=== PATIENT | female | born 1980 | race Caucasian/White ===

== ENCOUNTER 2024-06-08 15:32 | Emergency (ER) | payer BC, SELFPAY ==
[2024-06-08 15:42] VITALS: BP 123/81; PULSE 105; RESP 18; TEMP 36.9; O2SAT 99
--- NOTE | 2024-06-08 16:28 | ED_ITS ---
HPI - General Adult General Chief complaint: Upper Respiratory Infection Stated complaint: Sinus Pain Source: patient Mode of arrival: ambulatory Limitations: no limitations History of Present Illness HPI narrative: Patient presents for evaluation of sick symptoms. Symptom onset 2 days ago. She reports frontal headache, sinus congestion, mucopurulent discharge from the nares, cough and wheezing. She has an underlying history of asthma. She denies any fever, chills, nausea, vomiting, diarrhea. She has a history of sinusitis and this feels similar. She does not smoke. She tried taking Mucinex for symptoms. Related Data Allergies Allergy/AdvReac Type Severity Reaction Status Date / Time No Known Allergies Allergy Verified 06/08/24 16:05 Review of Systems Review of Systems: CONSTITUTIONAL: Denies fever, chills, or sweats. EYES: Denies visual changes, redness, or discharge. ENT: Reports sinus congestion, mucopurulent discharge from the nares CARDIOVASCULAR: Denies chest pain, palpitations, or edema. RESPIRATORY: Reports cough and wheezing. Denies shortness of breath. GASTROINTESTINAL: Denies abdominal pain, nausea, vomiting, or diarrhea. GENITOURINARY: Denies dysuria or hematuria. SKIN: Denies rash or itching. MUSCULOSKELETAL: Denies back pain, joint pain, or myalgia. NEUROLOGIC: Reports headache. Denies numbness, dizziness, or weakness. PSYCHIATRIC: Denies anxiety or depression. PMFSH Past Medical History Medical History Recurrent sinusitis Asthma Surgical History Surgical History H/O sinus surgery Family History Family History (Updated 06/08/24 @ 16:29 by NATHANAEL Tobin, ) Mother No problems noted. Social History Social History Smoking status: Never smoker Substance use: never Living arrangements: with family Gender identity (if verbalized by the patient): Female Sexual Orientation (if Verbalized by the Patient): Straight or Heterosexual Spiritual care concerns: No Exam Narrative: GENERAL: Well-appearing, well-nourished, and in no acute distress. HEAD: Normocephalic, atraumatic. EYES: PERRLA and EOMI. ENT: Nares clear, no rhinorrhea or epistaxis. Mucous membranes moist. Oropharynx without tonsillar hypertrophy exudate or other lesions. Bilateral TMs pearly case nonbulging NECK: Supple. No adenopathy or masses. No carotid bruits or JVD CHEST: Clear to auscultation. No respiratory distress. No wheezes rales or rhonchi HEART: Regular rate and rhythm. No murmur heard. Normal peripheral pulses. ABDOMEN: Soft, nontender, nondistended, normal active bowel sounds. EXTREMITIES: Normal range of motion. No edema. SKIN: Warm, dry, no rash. NEURO: No focal deficits. Alert and oriented x3. PSYCH: Normal mood and affect. Course Course Emergency Course: This is a 43-year-old female who presented for evaluation of sinus symptoms. She meets criteria for bacterial sinusitis based upon mucopurulent discharge. Will discharge with Augmentin. Prednisone for reported wheezing and history of asthma. Follow up with primary provider. Go to the ER for worsening symptoms. Pt in agreement with plan of care. Level of Care: Express Care Visit Vital Signs Vital signs: Vital Signs Temperature 36.9 C 06/08/24 15:42 Pulse Rate 105 H 06/08/24 15:42 Respiratory Rate 18 06/08/24 15:42 Blood Pressure 123/81 06/08/24 15:42 Pulse Oximetry 99 06/08/24 15:42 Oxygen Delivery Room Air 06/08/24 15:42 Temperature 36.9 C 06/08/24 15:42 Pulse Rate 105 H 06/08/24 15:42 Respiratory Rate 18 06/08/24 15:42 Blood Pressure 123/81 06/08/24 15:42 Pulse Oximetry 99 06/08/24 15:42 Oxygen Delivery Room Air 06/08/24 15:42 Medical Decision Making Vital Signs Vital Signs: Vital Signs Temperature 36.9 C 06/08/24 15:42 Pulse Rate 105 H 06/08/24 15:42 Respiratory Rate 18 06/08/24 15:42 Blood Pressure 123/81 06/08/24 15:42 Pulse Oximetry 99 06/08/24 15:42 Oxygen Delivery Room Air 06/08/24 15:42 Temperature 36.9 C 06/08/24 15:42 Pulse Rate 105 H 06/08/24 15:42 Respiratory Rate 18 06/08/24 15:42 Blood Pressure 123/81 06/08/24 15:42 Pulse Oximetry 99 06/08/24 15:42 Oxygen Delivery Room Air 06/08/24 15:42 Discharge Plan Discharge Clinical Impression: Sinusitis Patient Disposition: Home, Self-Care Condition: Stable Instructions: Antibiotic Form, Asthma (ED), Sinusitis (ED) Patient Language: Gren[place] Prescriptions: New amoxicillin-pot clavulanate 875-125 mg tablet 1 tablet PO Q12H Qty: 20 0RF prednisone 50 mg tablet 50 mg PO DAILY Qty: 5 0RF Follow-up/Referrals: Paradise Flores DO [Physician] - Time of Disposition: 16:27
== END 2024-06-08 16:33 | disposition home or self-care (01) ==
PROVIDERS: Emergency Provider Nurse Practitioner
DX: J32.9 Chronic sinusitis, unspecified (principal); B96.89 Other specified bacterial agents as the cause of diseases classified elsewhere; J45.909 Unspecified asthma, uncomplicated
CPT/HCPCS: 99213; G0463